=== PATIENT | male | born 1995 | race Caucasian/White ===

== ENCOUNTER 2017-03-07 11:48 | Emergency (ER) | payer OTHER ==
[~2017-03-07] VITALS: Ht 195.6 cm; Wt 100.0 kg
[2017-03-07 11:51] VITALS: BP 104/49; TEMP 96.5
[2017-03-07] MEDS ORDERED: PROAIR HFA0.09 MG/AC IH (12:14)
[2017-03-07 13:04] LABS: BASO # 0.1 (0.0-0.2); BASO % 0.9 % (0.0-2.0); EOS # 0.4 (0.0-0.7); EOS % 7.5 % (0-4.0); GRAN # 3.2 (1.4-6.5); GRAN % 55.7 % (42.2-75.2); HEMATOCRIT 46.5 % (42.0-52.0); HEMOGLOBIN 15.4 g/dl (13.5-18.0); LYMPH # 1.5 (1.2-3.4); LYMPH % 26.7 % (20.0-51.0); MEAN CELL VOLUME 93 fl (80.0-100.0); MEAN CORPUSCULAR HEMOGLOBIN 31 pg (27.0-31.0); MEAN CORPUSCULAR HGB CONC 33 g/dl (33.0-37.0); MEAN PLATELET VOLUME 10.1 fl (7.4-10.4); MONO # 0.5 (0.1-0.6); MONO % 8.7 % (1.7-9.3); PLATELET COUNT 236 K/mm3 (130-400); RED BLOOD COUNT 4.98 M/mm3 (4.20-5.60); REDCELL DISTRIBUTION WIDTH-CV 13.2 % (11.5-14.5); WHITE BLOOD COUNT 5.8 K/mm3 (4.8-10.8)
[2017-03-07 13:18] LABS: CALCIUM 9.6 mg/dL (8.4-10.2); CREATININE, serum 1.06 mg/dL (0.66-1.25); POTASSIUM 3.9 mmol/L (3.4-5.0)
[2017-03-07] MEDS ORDERED: CEPHALEXIN500 M1 PO (15:06)
[2017-03-07] MEDS ORDERED: TYLENOL W/COD1 UDTAB PO (15:06)
[2017-03-07 15:19] VITALS: PULSE 72
== END 2017-03-07 15:19 | disposition home or self-care (01) ==
LOC: COL.ER 11:48
PROVIDERS: Emergency Medicine
DX: S52.501B Unspecified fracture of the lower end of right radius, initial encounter for open fracture type I or II (principal); Y92.009 Unspecified place in unspecified non-institutional (private) residence as the place of occurrence of the external cause; W25.XXXA Contact with sharp glass, initial encounter
CPT/HCPCS: J0690; J7040

== ENCOUNTER 2017-03-20 12:30 | Outpatient (RCR) | payer OTHER ==
[~2017-03-20 12:30] MED LIST: CEPHALEXIN500 M1 PO; PROAIR HFA0.09 MG/AC IH; TYLENOL W/COD1 UDTAB PO
== END 2017-06-12 ==
LOC: WSOT
DX: S66.821D Laceration of other specified muscles, fascia and tendons at wrist and hand level, right hand, subsequent encounter (principal)